=== PATIENT | male | born 1990 | race Caucasian/White ===

== ENCOUNTER 2016-04-06 18:55 | Emergency (ER) | payer SELFPAY ==
[~2016-04-06] VITALS: Ht 193 cm; Wt 136.1 kg
[~2016-04-06 18:55] MED LIST: AMIODARONE 150 MG/3 ML (CORDARONE) AMP IV ONE; ATEN100T88 PO; ATEN50TA PO; ATROPINE INJECTION 1 MG/10 ML SYR (ABBOTT) INJ ONE; CATHETER FLUSH 10 ML SYR IV ONE; CEPH-507 PO; CYCL10TA9 PO; DEXTROSE 50% 50 ML (IMS) SYR IV ONE; DILT120C8 PO; DILT120C82 PO; DILT30TA PO; EPINEPHrine 0.1 MG/ML 10 ML (HOSPIRA) SYR IV ONE; FLEC100T PO; FLEC150T PO; FLEC150T15 PO; HYDR-3812 PO; NAPR500T3 PO; ONDA4TAB11 PO; PRD20T PO; SODIUM BICARB 8.4% 50 MEQ/50 ML (ABBOTT) SYR INJ ONE; SULF-222 PO
--- OUTSIDE RECORDS SUMMARY | 2016-04-06 19:00 | XMS REPORT | Continuity of Care Document ---
Author Author [facility] Organization [facility] Address Unknown Phone Unavailable Care Team Providers Care Supervisor Electronic Testing Name Role Phone No Pcp, Na PCP Unavailable Source Comments Some departments are not documenting in the electronic medical record. If you do not see the information that you expected, contact Release of Information in the Health Information Management department at [phone] for further assistance in locating additional records.[facility] Active Allergies and Adverse Reactions Allergen Noted Date Severity Reactions Comments Bee Sting 08/10/2014 High ANAPHYLAXIS Current Medications Prescription Sig. Disp. Refills Start End Date Status Date HYDROcodone/acetaminophen Take 1 Tab by mouth every 15 Tab 0 08/10/19 Active (NORCO; VICODIN) 5-325 mg 4 hours as needed 16 tablet Active Problems Problem Noted Date Cardiac pacemaker in situ 08/11/2015 Second degree AV block, Mobitz type II 08/11/2015 SVT (supraventricular tachycardia) (HCC) 08/08/2015 WPW (Hzhtb-Aazddlghk-Pwjql syndrome) 08/10/2014 Wide-complex tachycardia (HCC) 08/10/2014 Overview: 08/10/2014 - ECHO: All chamber sizes are upper range of normal to mildly dilated, may be WNL when indexed to BSA. There is a discrepancy regarding LV global systolic function on standard vs contrast enhanced views. On standard views EF appears normal at 60%, on contrast views EF is estimated to be 50%. Unremarkable cardiac valve structures and function. Pulmonary artery pressure=23mmHg. No significant pericardial effusion. 08/12/2014 - EPS: Successful AVN Modification/ Slow Pathway Ablation Morbid obesity with BMI of 40.0-44.9, adult (HCC) 08/10/2014 Overview: Body mass index is 39.46 kg/(m^2). Resolved Problems Problem Noted Date Resolved Date Leukocytosis 08/10/2014 08/08/2015 Immunizations Name Dates Previously Given Next Due Pneumococcal Vaccine 08/13/2014 (23-Ernestine Adult) Social History Tobacco Use Types Packs/Day Years Used Date Light Tobacco Smoker Smokeless Tobacco: Chew Current User Tobacco Cessation: Ready to Quit: No Comments: Alcohol Use Drinks/Week oz/Week Comments Yes socially Last Filed Vital Signs Vital Sign Reading Time Taken Blood Pressure 131/77 08/10/2015 11:53 AM CDT Pulse 83 08/10/2015 11:53 AM CDT Temperature 36.7 C (98.1 F) 08/10/2015 11:53 AM CDT Respiratory Rate - - Height 1.829 m (6' 0.01") 08/06/2015 3:25 PM CDT Weight 139.1 kg (306 lb 10.6 oz) 08/10/2015 5:51 AM CDT Body Mass Index 41.58 08/10/2015 5:51 AM CDT Oxygen Saturation 97% 08/10/2015 11:53 AM CDT Plan of Care Health Maintenance Due Date Last Done Comments Physical (Comprehensive) 12/20/1999 Exam Pertussis Vaccine 12/20/2003 Tetanus Vaccine 2009 Influenza Vaccine 11/24/2015 Results from Last 3 Months Not on file
--- NOTE | 2016-04-06 19:46 | ED CPR ---
HPI-CPR General Chief Complaint: Code Blue Stated Complaint: CODE BLUE Source of Information: EMS, Old Records History of Present Illness Time Seen by Provider: 18:57 Initial Comments PT ARRIVES VIA [facility] IN FULL ARREST PT HAD WITNESSED ARREST AT [facility]10 [facility] [place], WHERE PT IS SDET --PT SUDDENLY WENT DOWN FACE FIRST, PT WAS PULSELESS AND APNEIC AND CPR WAS IMMEDIATELY INITIATED AND EMS CALLED ON EMS ARRIVAL AT SCENE, PT WAS STILL PULSELESS AND APENIC, AND IN V-FIB AND DEFIBRILLATED X 2---INTO PACEMAKER SPIKES WITHOUT PULSE. EMS CONTINUED CPR, GAVE EPI X 3, ATROPINE X 2, BICARB X 1 VIA I/O IN LEFT LOWER LEG--NO RETURN OF PULSE EMS INTUBATED PT WITH 7.5 ET TUBE AND BEING BAGGED VIA ET TUBE ON ARRIVAL TO ER, CPR WAS CONTINUED, PT STILL PULSELESS AND APNEIC I/O WAS DISLODGED ON TRANSFER FROM EMS CART TO ER CART, AND ATROPINE WAS GIVEN VIA ET TUBE ON ARRIVAL. I/O RESTARTED IN RIGHT LOWER LEG AND RIGHT EJ ACCESS OBTAINED. ADDITIONAL EPI X 8, AMIODARONE 300 MG, 1 AMP D50, AND 1 AMP BICARB GIVEN PT WAS DEFIBRILLATED X 10 HERE FOR FINE V-FIB ON MONITOR WITH NO RETURN OF PULSE MAGNET APPLIED OVER PACEMAKER, WHICH STILL SHOWED FINE V-FIB ON MONITOR PT WITH LONG HISTORY OF RECURRENT SVT/WPW SINCE AGE 18--HAD 4 FAILED CARDIAC ABLATIONS AND HAD PACEMAKER PLACED IN 2016 PT HAD NOT BEEN COMPLIANT WITH MEDICATIONS OR FOLLOW UP WITH CARDIOLOGY DUE TO FINANCES. PT WITH A MULTITUDE OF VISITS--MANY FOR SVT PCP: NONE ADVANCED PRACTICE PROVIDER: DR. JOHNSTON HAS ALSO BEEN SEEN BY MULTIPLE ELECTROPHYSIOLOGISTS IN [place] DR. DELACRUZ IN [place]. Allergies and Home Medications Allergies Coded Allergies: No Known Drug Allergies (Unverified , 02/25/10) Home Medications Cyclobenzaprine HCl 10 Mg Tablet #12 10 MG PO TID PRN PRN PAIN Prescribed by: HARRY CAMPBELL on 01/28/162058 Hydrocodone/Acetaminophen 1 Each Tablet #12 2 EACH PO Q6H PRN PRN PAIN Prescribed by: HARRY CAMPBELL on 01/28/162058 Review of Systems Constitutional: other (UNABLE TO OBTAIN FROM PT-- REPORTS THAT PT "HADN'T FELT GOOD FOR THE PAST FEW DAYS" BUT HE WOULD NOT ELABORATE TO HER WHAT SYMPTOMS HE WAS HAVING. ) Past Vybnaha-Mynmje-Mlexcc Hx Patient Social History Alcohol Use: Occasionally Uses Recreational Drug Use: No Smoking Status: Current Everyday Smoker (1/2 PPD) Type Used: Cigarettes Recent Hopitalizations: No Immunizations Up To Date Tetanus Booster (TDap): Unknown Seasonal Allergies Seasonal Allergies: No Surgeries HX Surgeries: Yes (CARDIAC ABLATION ATEMPTS X 4--FAILED; DUAL CHAMBER PACEMAKER ) Surgeries: Cardiac, Pacemaker Respiratory Hx Respiratory Disorders: Yes Respiratory Disorders: Sleep Apnea Cardiovascular Hx Cardiac Disorders: Yes (WPW--[id number]: RECURRENT SVT; FAILED ABLATION X 4; PACEMAKER) Cardiac Disorders: Hypertension, Irregular Heartbeat Neurological Hx Neurological Disorders: No Reproductive System Hx Reproductive Disorders: No Sexually Transmitted Disease: No HIV/AIDS: No Genitourinary Hx Genitourinary Disorders: No Gastrointestinal Hx Gastrointestinal Disorders: No Musculoskeletal Hx Musculoskeletal Disorders: No Endocrine Hx Endocrine Disorders: Yes (OBESITY) HEENT HX ENT Disorders: No Cancer Hx Cancer: No Psychosocial Hx Psychiatric Problems: No Integumentary HX Skin/Integumentary Disorder: No Blood Transfusions Hx Blood Disorders: No Adverse Reaction to a Blood Tr: No Family Medical History Family Medial History: Hypertension 19 FATHER Ovarian cancer 19 MOTHER Physical Exam Vital Signs Vital Sign - Last 12Hours 04/06/16 18:57 Temp 97.4 Pulse 0 Resp 0 B/P 0/ Pulse Ox 0 O2 Delivery Ambu-Bag O2 Flow Rate 15 Capillary Refill : General Appearance: Other (PT IN FULL ARREST, INTUBATED WITH CPR IN PROGRESS) HEENT: Other (PUPILS FIXED AND DILATED) Respiratory: Other (NO SPONTANEOUS RESPIRATIONS, BREATH SOUNDS EQUAL WITH BAGGING VIA ET TUBE. ) Cardiovascular: No Edema Other (NO PALPABLE PULSES OR HEART BEAT AUSCULTATED. ) Gastrointestinal: Soft Extremity: No Pedal Edema Neurologic/Psychiatric: Other (UNRESPONSIVE) Skin: Mottled Pallor Progress/Results/Core Measures Results/Orders Vital Signs/I&O Vital Sign - Last 12Hours 04/06/16 04/06/16 04/07/16 18:57 18:57 04:11 Temp 97.4 94.1 Pulse 0 0 Resp 0 0 B/P 0/ Pulse Ox 0 0 O2 Delivery Ambu-Bag Ambu-Bag O2 Flow Rate 15 0 0 Critical Care Note Critical Care Start Time: 18:57 Stop Time: 19:19 Total Time (minutes) 22 Date of : Apr 06, 2016 Time of : 19:19 Progress SEE CODE BLUE NOTES FOR DETAILS Departure Communication Progress Notes 1926--CALLED DR. JOHNSTON AND INFORMED HIM OF PT'S . HE WILL SIGN CERTIFICATE. Impression Impression: Primary Impression: Sudden cardiac Additional Impressions: HX OF RECURRENT SVT / WPW SYNDROME Sustained ventricular fibrillation Disposition: 20 Condition: Departure-Patient Inst. Referrals: NO,LOCAL PHYSICIAN (PCP/Family) Primary Care Physician ISRAEL DURAN DO Apr 06, 2016 19:46 ISRAEL DURAN DO Apr 06, 2016 19:46
[2016-04-07 04:11] VITALS: BP 0/0
== END 2016-04-07 04:11 | disposition expired ==
LOC: EDUNIT# 18:55 → ER 18:56
DX: I46.9 Cardiac arrest, cause unspecified (principal); I45.6 Pre-excitation syndrome; I49.01 Ventricular fibrillation; F17.210 Nicotine dependence, cigarettes, uncomplicated; E66.9 Obesity, unspecified; Z95.0 Presence of cardiac pacemaker
CPT/HCPCS: 93041; 99291